=== PATIENT | female | born 1980 | race Two or more races ===

== ENCOUNTER 2025-06-22 22:13 | Emergency (ER) | payer OTHER ==
[~2025-06-22] VITALS: Ht 165.1 cm; Wt 81.8 kg
--- NOTE | 2025-06-23 01:14 | ED.PDOC ---
Back pain HPI HPI Comments PATIENT COMES WITH C/C OF BACK PAIN AND SOME NECK PAIN S/P FALL DOWN 3 STEPS. PATIENT REPORTS SHE WAS WALKING DOWN STAIRS WHEN SHE FELL AND LANDED STRAIGHT ON HER BOTTOM AND SLID DOWN HER BACK. 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 Family History Family History: Reviewed,noncontributory to illness Social History Smoker: Non-Smoker Alcohol: Denies ETOH Use Drugs: Denies Drug Use Constitutional: denies: chills, diaphoresis, fatigue, fever, malaise, sweats, weakness, others EENTM: denies: blurred vision, double vision, ear bleeding, ear discharge, ear drainage, ear pain, ear ringing, eye pain, eye redness, hearing loss, mouth pain, mouth swelling, nasal discharge, nose bleeding, nose congestion, nose pain, photophobia, tearing, throat pain, throat swelling, voice changes, others Respiratory: denies: cough, hemoptysis, orthopnea, SOB at rest, shortness of breath, SOB with excertion, stridor, wheezing, others Cardiovascular: denies: chest pain, dizzy spells, diaphoresis, Dyspnea on exertion, edema, irregular heart beat, left arm pain, lightheadedness, palpitations, PND, syncope, others Gastrointestinal: denies: abdomen distended, abdominal pain, blood streaked bowels, constipated, diarrhea, dysphagia, difficulty swallowing, hematemesis, melena, nausea, poor appetite, poor fluid intake, rectal bleeding, rectal pain, vomiting, others Genitourinary: denies: abnormal vagina bleeding, burning, dyspareunia, dysuria, flank pain, frequency, hematuria, incontinence, pain, , vagina discharge, urgency, others Neurological: denies: dizziness, fainting, headache, left sided numbness, left sided weakness, numbness, paresthesia, pre-existing deficit, right sided numbness, right sided weakness, seizure, speech problems, tingling, tremors, weakness, others Musculoskeletal: reports: back pain, neck pain; denies: gout, joint pain, joint swelling, muscle pain, muscle stiffness, others Integumetry: denies: bruises, change in color, change in hair/nails, dryness, laceration, lesions, lumps, rash, wounds, others Allergic/Immunocompromised: denies: Difficulty Healing, Frequent Infections, Hives, Itching, others Hematologic/Lymphatic: denies: anemia, blood clots, easy bleeding, easy bruising, swollen glands, others Endocrine: denies: excessive hunger, excessive sweating, excessive thirst, excessive urination, flushing, intolerance to cold, intolerance to heat, unexplained weight gain, unexplained weight loss, others Psychiatric: denies: anxiety, bipolar disorder, depression, hopeless, panic disorder, schizophrenia, sleepless, suicidal, others Physical Exam General Appearance: No Apparent Distress, Normal HEENT: Pharynx Normal Neck: Limited Range of Motion, Tender Lateral Respiratory: Lungs Clear, No Respiratory Distress, Normal Breath Sounds Cardiovascular: No Murmur, Normal Peripheral Pulses, Regular Rate/Rhythm Breast Exam: Deferred Gastrointestinal: Non Tender, Soft Genitalia: Deferred Pelvic: Deferred Rectal: Deferred Extremities: Normal range of motion, No pedal edema Musculoskeletal : Location: Bilateral Extremity Location: Back (Patient with moderate tenderness along paraspinal muscles bilateral cervicothoracic and lumbar spine. No noted crepitus or step- offs. Strength sensory and motion intact. ) Apperance: Normal Neurologic: Alert, No Motor Deficits, Normal Affect, Normal Mood, No Sensory Deficits Cerebellar Function: Normal Reflexes: Normal Skin: Dry, Normal Color, Warm Lymphatic: No Adenopathy Was a procedure done? Was a procedure done?: No Back Pain Differential Dx Differential Diagnosis: Fracture, Musculoskeletal Pain, Strain X-Ray, Labs, Meds, VS Vital Signs Date Time Temp Pulse Resp B/P (MAP) Pulse Ox O2 Delivery O2 Flow Rate FiO2 06/23/25 01:21 98.5 70 19 127/70 (89) 100 98.5 06/23/25 01:21 70 19 100 Room Air 06/22/25 22:31 98.5 77 18 133/81 98 98.5 Current Medications Medications (Trade) Dose Ordered Sig/Toby Route Start Time Stop Time Status Last Admin Ibuprofen (Motrin Tablet) 800 mg ONCE ONCE PO 06/22/25 23:00 06/22/25 23:01 DC 06/23/25 01:15 X-Ray, Labs, Meds, VS Comment Cervical, thoracic, and lumbar spine show no acute fractures subluxations or osseous lesions. Likely muscle strain. Patient given ibuprofen 800 mg p.o. reports improvement in pain and function requesting discharge at this time. Advised on rest alternate between ice and heat. Script trial of muscle relaxer and anti-inflammatory advised to take medications as prescribed side effects discussed. Advised to follow up with her PCP in 2-3 days as necessary and employee health. ER return precautions given patient indicates understanding agrees with discharge plan of care. Time of 1ST Reevaluation: 02:00 Reevaluation 1ST: Unchanged Reevaluation 2ND: Improved Patient Education/Counseling: Diagnosis, Treatment, Prognosis, Need For Follow Up Family Education/Counseling: No Family Present SEPSIS Sepsis Screen Date sepsis recognized/suspect: Jun 22, 2025 Time Sepsis recognized/suspect: 2233 Recent Procedure: No On Antibiotic Therapy: No Respiratory Rate >20: No Heart Rate >90: No Temp<36 C (96.8 F) or >38.3 C: No SBP <90 or MAP <65 mmHG: No New Acute Mental Status Change: No Is the patient on CPAP, BIPAP,: No Physician Orders Cervical Spine 3v (06/23/25 00:37) Spine Thoracic 2view (06/23/25 00:37) Lumbar Spine 3 View (06/23/25 00:37) Vital Signs Date Time Temp Pulse Resp B/P (MAP) Pulse Ox O2 Delivery O2 Flow Rate FiO2 06/23/25 01:21 98.5 70 19 127/70 (89) 100 98.5 06/23/25 01:21 70 19 100 Room Air 06/22/25 22:31 98.5 77 18 133/81 98 98.5 Medications Medications Dose Ordered Sig/Toby Route Start Time Stop Time Status Last Admin Dose Admin Ibuprofen 800 mg ONCE ONCE PO 06/22/25 23:00 06/22/25 23:01 DC 06/23/25 01:15 Departure 1 Departure Time of Disposition: 02:07 Impression: Primary Impression: Strain of muscle and tendon of back wall of thorax, initial encounter Additional Impressions: Lumbar sprain Qualified Codes: S33.5XXA - Sprain of ligaments of lumbar spine, initial encounter Cervical muscle strain Qualified Codes: S16.1XXA - Strain of muscle, fascia and tendon at neck level, initial encounter Status post fall Disposition: 01 HOME / SELF CARE / HOMELESS Condition: Stable e-Prescriptions Nabumetone (Nabumetone) 500 Mg Tab 1 TAB PO BID PRN for 7 Days, #14 TAB Prov: BERE MARION 06/23/25 Tizanidine Hydrochloride (Tizanidine Hcl) 4 Mg Tab 4 MG PO BID PRN for 7 Days, #14 TAB Prov: BERE MARION 06/23/25 Discharged With: [employer] Critical Care Note Critical Care Time?: No Stability Stability form required: No BERE MARION Jun 23, 2025 01:14
[2025-06-23] MEDS: IBUPROFEN 800 MG TAB PO ONE (01:15)
[2025-06-23 01:21] VITALS: BP 127/70; PULSE 70; RESP 19; TEMP 98.5; O2SAT 100
--- NOTE | 2025-06-23 01:31 | DVH ---
EXAM: XY LUMBAR SPINE 3 VIEW HISTORY: Status post fall down stairs injury and pain COMPARISON: None TECHNIQUE: AP and lateral views of the lumbar spine and spot lateral of the lumbosacral junction were performed. FINDINGS/IMPRESSION: No acute fracture. The alignment is maintained. If clinical symptoms persist, CT or MRI may be beneficial in further evaluation.
--- NOTE | 2025-06-23 01:31 | DVH ---
INDICATION: Status post fall down stairs injury/pain COMPARISON: None TECHNIQUE:2 views of the thoracic spine were obtained. FINDINGS/IMPRESSION: No acute displaced fracture. The alignment is maintained. If clinical symptoms persist, CT or MRI m ay be beneficial in further evaluation.
--- NOTE | 2025-06-23 01:31 | DVH ---
INDICATION: Status post fall down stairs injury/pain TECHNIQUE: 3 views of the cervical spine were obtained. COMPARISON: None FINDINGS: The cervical spine is visualized from C1-C7. There is loss of the normal cervical lordosis which can be positional. No fractures or subluxations are identified. Alignment appears unremarkable. Prevertebral soft tissues are within normal limits. IMPRESSION: 1. No evidence for fracture or subluxation.
[2025-06-23] MEDS ORDERED: TIZA-142 PO (02:16)
[2025-06-23] MEDS ORDERED: NABU-72 PO (02:16)
== END 2025-06-23 02:20 | disposition home or self-care (01) ==
LOC: ER 22:13
DX: S33.5XXA Sprain of ligaments of lumbar spine, initial encounter (principal); S29.012A Strain of muscle and tendon of back wall of thorax, initial encounter; S16.1XXA Strain of muscle, fascia and tendon at neck level, initial encounter; Z79.899 Other long term (current) drug therapy; W10.9XXA Fall (on) (from) unspecified stairs and steps, initial encounter; Y93.01 Activity, walking, marching and hiking; Y92.098 Other place in other non-institutional residence as the place of occurrence of the external cause; Y99.8 Other external cause status
CPT/HCPCS: 72040; 72070; 72100